=== PATIENT | male | born 1990 | race Caucasian/White ===

== ENCOUNTER 2020-09-05 21:18 | Emergency (ER) | payer OTHER, BC, SELFPAY ==
--- NOTE | ~2020-09-05 | XR_ITS ---
[id number] DATE: 09/05/2020 22:59 INDICATION: Blunt injury at work. Left chest/pectoral pain TECHNIQUE: PA chest. 3 views of the left ribs. COMPARISON: None FINDINGS: No left rib fracture or bone destruction is evident. No other significant bony abnormality. Normal heart size. No hilar or mediastinal enlargement. No pulmonary infiltrate or consolidation, ple ural effusion or pulmonary vascular congestion or pneumothorax. IMPRESSION: Negative chest and left RIBS Reviewed, dictated and finalized at [facility] Reviewed, dictated and finalized at [facility].
--- NOTE | ~2020-09-05 | XR_ITS ---
XR humerus LT DATE: 09/05/2020 22:57 INDICATION: Blunt injury, left shoulder pain TECHNIQUE: 2 views of left humerus COMPARISON: None FINDINGS: No fracture or dislocation, periosteal reaction or bone destruction. Normal alignment at th e acromioclavicular, glenohumeral and elbow joints. IMPRESSION: Negative left humerus Reviewed, dictated and finalized at [facility] IMPRESSION: Negative left humerus
[2020-09-05 21:33] VITALS: BP 139/95; PULSE 87; RESP 18; TEMP 36.6; O2SAT 97
--- NOTE | 2020-09-05 21:40 | PC.NURSE ---
Report to [facility], to continue care.
[2020-09-05] MEDS: HYDROcodone/acetaminophen (*CRX) 5-325 MG TABLET 1 TAB PO (22:33)
[2020-09-05 22:34] VITALS: BP 139/109; PULSE 85; RESP 20; O2SAT 98
[2020-09-05] MEDS: KETOROLAC (*BKC) 60 MG/2 ML VIAL IM (22:34)
--- NOTE | 2020-09-05 22:43 | ED.GENADULT ---
HPI - General Adult General Chief complaint: Unspecified Stated complaint: left shoulder. chest pain Time Seen by Provider: 09/05/20 21:36 Source: patient and RN notes reviewed Mode of arrival: ambulatory Limitations: no limitations History of Present Illness HPI narrative: This is a 29 year old male who presents for evaluation of left chest wall and left shoulder pain. He states a few hours ago he accidentally had skid of TVs hit his chest wall. He states he was holding a skid with TVS on it as someone was lifting skid with a fork lift. He states the pallet hit his chest for a second . As time has progressed , he has developed worsening pain to his chest wall. He states he took 600 mg ibuprofen before arrival. HE denies shortness of breath , nausea, vomiting, or weakness. HE denies taking any medication. He denies extremity numbness or tingling. Related Data Home Medications Medication Instructions Recorded Confirmed dextroamphetamine-amphetamine 10 mg PO BID 09/05/20 09/05/20 [Adderall] Allergies Allergy/AdvReac Type Severity Reaction Status Date / Time No Known Allergies Allergy Verified 09/05/20 21:40 Review of Systems Review of Systems: All systems reviewed & are unremarkable except as noted in HPI and below PMFSH Past Medical History Medical History (Updated 09/06/20 @ 00:00 by Brandy Wallace) ADHD Surgical History Surgical History (Updated 09/05/20 @ 22:48 by Jenifer Santana MD) No pertinent past surgical history Social History Social History (Updated 09/05/20 @ 22:48 by Jenifer Santana MD) Smoking status: Never smoker Gender identity (if verbalized by the patient): Male Exam Narrative: Exam Narrative: GENERAL: Well-appearing, well-nourished, and in no acute distress. HEAD: Normocephalic, atraumatic EYES: PERRLA and EOMI, conjunctiva clear without discharge THROAT:Mucous membranes moist, Oropharynx normal without erythema, exudate, peritonsillar swelling or fluctuance NECK: Supple, without lymphadenopathy or mass RESPIRATORY: No respiratory distress, Airway patent, Respirations non-labored, Clear to auscultation without rales, rhonchi or wheeze HEART: Regular rate and rhythm. No murmur heard. Normal peripheral pulses. there is left chest wall tenderness without swelling, fluctance or bruising. ABDOMEN: Soft, nontender, nondistended, normal active bowel sounds. No masses. No rebound or guarding, No organomegaly. EXTREMITIES: No edema, normal strength with full range of motion. no swelling, he has full ROM SKIN: Warm, dry, normal color without rash. There is an abrasion to left shoulder, no bruising NEURO: Alert and oriented x3. CN 2-12 grossly intact. No focal deficits. PSYCH: Normal mood and affect. Course Reevaluation(s) Reevaluation #1: I have discussed with patient xray are unremarkable. He is dealing with muscle contusion. I discussed discharge treatment and plan. Date: 09/05/20 Time: 23:07 Vital Signs Vital signs: Vital Signs Temperature 97.8 F 09/05/20 21:33 Pulse Rate 87 09/05/20 21:33 Respiratory Rate 18 09/05/20 21:33 Blood Pressure 139/95 H 09/05/20 21:33 Pulse Oximetry 97 09/05/20 21:33 Temperature 97.8 F 09/05/20 21:33 Pulse Rate 84 09/05/20 23:44 Respiratory Rate 20 09/05/20 23:44 Blood Pressure 134/89 09/05/20 23:44 Pulse Oximetry 98 09/05/20 23:44 Medical Decision Making Vital Signs Vital Signs: Vital Signs Temperature 97.8 F 09/05/20 21:33 Pulse Rate 87 09/05/20 21:33 Respiratory Rate 18 09/05/20 21:33 Blood Pressure 139/95 H 09/05/20 21:33 Pulse Oximetry 97 09/05/20 21:33 Temperature 97.8 F 09/05/20 21:33 Pulse Rate 84 09/05/20 23:44 Respiratory Rate 20 09/05/20 23:44 Blood Pressure 134/89 09/05/20 23:44 Pulse Oximetry 98 09/05/20 23:44 Imaging Data Radiologist's impression: ITS Impressions Humerus X-Ray 09/05/20 23:00 IMPRESSION: Neg
[2020-09-05 23:44] VITALS: BP 134/89; PULSE 84; RESP 20; O2SAT 98
== END 2020-09-05 23:45 | disposition home or self-care (01) ==
PROVIDERS: Emergency Provider General Practice
DX: S20.212A Contusion of left front wall of thorax, initial encounter (principal); S40.022A Contusion of left upper arm, initial encounter; F90.9 Attention-deficit hyperactivity disorder, unspecified type; W22.8XXA Striking against or struck by other objects, initial encounter
CPT/HCPCS: 71101; 73060; 96372; 99284; A9270; J1885